=== PATIENT | female | born 1945 | race Caucasian/White ===

== ENCOUNTER 2016-12-30 14:46 | Emergency (ER) | payer OTHER, MEDICARE ==
[2016-12-30 15:00] VITALS: RESP 16; TEMP 98.1
[2016-12-30] MEDS ORDERED: ONDANSETRON DISINTEGRATING 4 MG TAB PO ONE (15:37)
--- NOTE | 2016-12-30 16:24 | EDPHY ---
H & P Stated Complaint: knocked over by dog wednesday/ head and r side of body/ nauseated Source: Patient Exam Limitations: No limitations - Personal History Current Tetanus/Diphtheria Vaccine: Unsure - Medical/Surgical History Hx Asthma: No Hx Chronic Respiratory Disease: No Hx Diabetes: No Hx Cardiac Disease: No Hx Renal Disease: No Hx Cirrhosis: No Hx Alcoholism: No Hx HIV/AIDS: No Hx Splenectomy or Spleen Trauma: No Other PMH: back surgery/choly - Social History Smoking Status: Never smoked HPI/ROS: CHIEF COMPLAINT: Fall, headache, nausea, shoulder pain, rib pain HISTORY OF PRESENT ILLNESS: Patient was walking her dogs ago when she was pulled suddenly. She fell on the right side striking her head, shoulder and ribs. Since then she has had pain in the right shoulder ribs that is moderate to severe. She has had a mild headache at times, but today she became nauseated. No actual vomiting. Minimal headache. No neck pain at any time. No numbness or tingling anywhere. No unilateral complaints. No abdominal pain. No central chest pain. The right -sided rib pain is worse with palpation and breathing. The shoulder pain is worse with palpation and movement. Neither pain radiates. There is no back pain or injury. No other associated complaints or modifying factors. She does not take any blood thinners. REVIEW OF SYSTEMS: Ten systems reviewed and are negative unless otherwise noted in the HPI PAST MEDICAL HISTORY: Reviewed with patient. Takes BuSpar and Prozac SOCIAL HISTORY: Nonsmoker. Lives in [place]. Retired. FAMILY HISTORY: Noncontributory EXAMINATION General Appearance: Alert, no distress Head: normocephalic, atraumatic. No hematoma. No depression. No Subramanian sign. No raccoon eyes. Eyes: Pupils equal and round, no conjunctival pallor or injection. EOMs intact ENT, Mouth: Mucous membranes moist. Uvula midline. Airway widely patent Neck: Normal inspection, supple, non-tender. No crepitus, step-off or deformity. Painless range of motion all planes Respiratory: Lungs are clear to auscultation. No wheezing, rhonchi or crackles. Tenderness of the right mid axillary line over the lower ribs. No paradoxical movements. No retractions or distress Cardiovascular: Regular rate and rhythm. No murmur Gastrointestinal: Abdomen is soft and nontender Back: non-tender, no bony abnormalities. No midline tenderness at any level of the spine Neurological: GCS 15. A&O, nonfocal, normal gait. Strength is symmetric in all 4 limbs Skin: Warm and dry, no rash. No lacerations abrasions or contusions Extremities: Tenderness to palpation of the right shoulder. No tenderness of the elbow or radial head. No apprehension or instability of the shoulder elbow. Range of motion of the right shoulder, elbow and wrist is intact and symmetric. There is no pain with flexion, extension, supination or pronation of the right elbow. She has full extension without pain. Psychiatric: Mood and affect normal DIFFERENTIAL DIAGNOSES: Including but not limited to sprain, strain, contusion, intracranial hemorrhage , concussion, fracture MDM: 4:23 p.m. Mechanical fall with 3 areas of pain. The shoulder and ribs were x-ray prior to me evaluating the patient. Given her history and nausea, I have ordered CT scan of the head cervical spine to rule out occult injury. She is in no acute distress. Vital signs are within normal limits. 5:08 p.m. Notified by radiologist Dr. Christian. CT scans of the head and cervical spine reveal no acute findings. There are chronic changes as noted. I have re- evaluated the patient. 6:20 p.m. She is resting comfortably in no acute distress. X-rays of the shoulder and chest are negative for any acute findings. Discussed symptomatic care for her contusions. Follow up with primary care physician for further care. Return to ER precautions discussed. She is comfortable this plan and discharged home in stable condition. SUPERVISION: Patient was evaluated in conjunction with the supervising physician. Please see their note for details. (David Barry) Constitutional: Initial Vital Signs Temperature (C) 36.7 C 12/30/16 14:57 Heart Rate 79 12/30/16 14:57 Respiratory Rate 16 12/30/16 14:57 Blood Pressure 147/72 H 12/30/16 14:57 O2 Sat (%) 98 12/30/16 14:57 O2 Delivery Mode Room Air Allergies/Adverse Reactions: No Known Allergies Allergy (Unverified 12/30/16 14:56) Home Medications: Medication Instructions Recorded Buspar (*) 12/30/16 Prozac 20 MG (*) 12/30/16 Medical Decision Making - Diagnostics Imaging Results: Imaging Impressions Chest X-Ray 12/30/16 15:42 Impression: No acute abnormality. Shoulder X-Ray 12/30/16 15:42 Impression: There is no acute osseous abnormality. If there is progression of the patient's shoulder pain, MR imaging could be considered. Cervical Spine CT 12/30/16 16:22 Impression: 1. Degenerative cervical spine disease. 2. Nothing acute. Findings discussed with David Barry at 1700 hours, 12/30/2016.Final report concurs with initial preliminary interpretation. Head CT 12/30/16 16:22 Impression: Nothing acute. Findings and recommendations discussed with David Barry at 1700 hour, 2016. Final report concurs with initial preliminary interpretation. ED Course/Re-evaluation: I did not see this patient while she was in the emergency department. However her care was discussed with the PA while the patient was in the department. I agree with treatment plan and management (Brett Fernandez) - Data Points Medications Given: Discontinued Medications Ondansetron HCl (Zofran Odt) 4 mg PO EDNOW ONE Stop: 12/30/16 15:38 Last Admin: 12/30/16 16:20 Dose: 4 mg Departure - Departure Disposition: Home, Routine, Self-Care Clinical Impression: Fall Qualifiers: Encounter type: initial encounter Qualified Code(s): W19.XXXA - Unspecified fall, initial encounter Closed head injury Qualifiers: Encounter type: initial encounter Qualified Code(s): S09.90XA - Unspecified injury of head, initial encounter Shoulder sprain Qualifiers: Encounter type: initial encounter Shoulder sprain type: unspecified sprain Laterality: right Qualified Code(s): S43.401A - Unspecified sprain of right shoulder joint, initial encounter Contusion of rib on right side Qualifiers: Encounter type: initial encounter Qualified Code(s): S20.211A - Contusion of right front wall of thorax, initial encounter Condition: Good Instructions: Head Injury (ED), Shoulder Sprain (ED), Rib Contusion (ED) Additional Instructions: 1. Follow up with your primary care physician this week 2. Return to the ER for any worsening headache, nausea, or vomiting Referrals: Abdulkadir Phillips MD [Primary Care Provider] - As per Instructions
[2016-12-30 18:32] VITALS: BP 131/70; PULSE 73; O2SAT 97
== END 2016-12-30 18:31 | disposition home or self-care (01) ==
DX: S09.90XA Unspecified injury of head, initial encounter (principal); S43.401A Unspecified sprain of right shoulder joint, initial encounter; S20.211A Contusion of right front wall of thorax, initial encounter; W18.09XA Striking against other object with subsequent fall, initial encounter